=== PATIENT | male | born 2000 | race Two or more races ===

== ENCOUNTER 2024-05-07 10:35 | Emergency (ER) | payer BC ==
[2024-05-07 11:33] LABS: #Basophils Less than 0.03 10x3/uL (0.0-0.2); %Basophils 0.4 % (0.0-1.0); %Eosinophils 3.5 % (0.0-10.0); %Lymphocytes 44.7 % (21.0-51.0); %Monocytes 9.8 % (0.0-10.0); %Neutrophils 40.9 % (42.0-75.0); Mean Corpuscular HGB CONC 34.1 g/dL (32.0-36.0); Mean Corpuscular Hemoglobin 29.2 pg (27.0-31.0); Mean Corpuscular Volume 85.6 fL (78.0-98.0); Mean Platelet Volume 9.7 fL (7.4-10.4); Platelet Count 263 10x3/uL (130-400); RBC Distribution Width 13.1 % (11.5-14.5); Red Blood Cell (RBC) Count 4.79 mill/uL (4.70-6.10)
[2024-05-07 11:54] LABS: Acetaminophen Less than 10 mcg/mL (10.0-30.0); Alcohol 235.8 mg/dL (Less than 10); INR-International Normal Ratio 1.1; PTT 25.3 sec (22.9-36.1); Prothrombin Time 14.3 sec (12.0-14.7); Salicylate Less than 8.0 mg/dL (15.0-30.0)
[2024-05-07 11:57] LABS: ALT (SGPT) 105 U/L (8-55); AST (SGOT) 41 U/L (5-34); Albumin 4.2 g/dL (3.5-5.0); Alkaline Phosphatase 51 U/L (40-110); Anion Gap 13 mmol/L (10-20); BUN (Urea Nitrogen) 7 mg/dL (8.9-20.6); Bilirubin, Total 0.3 mg/dL (0.2-1.2); CK (CPK) 818 U/L (30-200); Calc. Creatinine Clearance 0 mL/min (70-130); Calcium 8.6 mg/dL (7.8-10.44); Carbon Dioxide 22 mmol/L (22-29); Chloride 111 mmol/L (98-107); Estimated GFR 124; Globulin 2.9 g/dL (2.4-3.5); Glucose 149 mg/dL (70-105); Potassium 4.4 mmol/L (3.5-5.1); Protein, Total 7.1 g/dL (6.0-8.3); Sodium 142 mmol/L (136-145)
[2024-05-07 12:00] LABS: Troponin I Less than 0.010 ng/mL (< 0.028)
[2024-05-07] MEDS ORDERED: Aspirin Chewable 81 MG TAB ONE (12:01)
[2024-05-07 12:51] LABS: Amphetamine Not Detected (NotDetected); Barbiturates Screen Not Detected (NotDetected); Benzodiazepine Screen Not Detected (NotDetected); Cocaine Metabolite Screen Not Detected (NotDetected); Methadone Not Detected (NotDetected); Methamphetamine Not Detected (NotDetected); Opiate Screen Not Detected (NotDetected); Oxycodone Screen Not Detected (NotDetected); Phencyclidine (PCP) Not Detected (NotDetected); THC/Cannabinoid Screen Not Detected (NotDetected); Tricyclic Screen Not Detected (NotDetected)
[2024-05-07] MEDS ORDERED: Iopamidol-370 76% 500 ML MDV (1 ML CHARGE) ONE (12:57)
[2024-05-07 13:06] LABS: Lipase 18 U/L (8-78)
[2024-05-07] MEDS ORDERED: Multivitamins, Adult 10 ML, Thiamine HCl 100 MG, Folic Acid 1 MG in Dextrose 5 %-0.45 %... IV SCH (14:00)
== END 2024-05-07 15:08 | disposition home or self-care (01) ==
LOC: ERS 10:35
DX: G45.9 Transient cerebral ischemic attack, unspecified (principal); F10.129 Alcohol abuse with intoxication, unspecified
CPT/HCPCS: 36415; 36416; 70450; 70496; 70498; 80053; 80306; 80307; 82550; 83690; 83735; 84484; 85025; 85610; 85730; 93005; 96361; 96365; 96366; J3411; J7042; Q9967